=== PATIENT | female | born 1985 | race Caucasian/White ===

== ENCOUNTER 2019-12-01 19:35 | Emergency (ER) | payer MEDICARE, MEDICAID ==
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
--- NOTE | 2019-12-01 20:27 | XRAY Report ---
PROCEDURE: Hand 3 View RT INDICATIONS: Trauma TECHNIQUE: 3 views of the hand(s) acquired. COMPARISON: None FINDINGS: Bones: No fractures or dislocations. No suspicious bony lesions. Soft tissues: No suspicious soft tissue calcifications. IMPRESSION: No fracture or dislocation. Reviewed by: Megha Escoto MD on 12/01/2019 8:26 PM PDT Approved by: Megha Escoto MD on 12/01/2019 8:26 PM PDT Station ID: [id number]
--- NOTE | 2019-12-01 20:28 | XRAY Report ---
PROCEDURE: Wrist 4 View RT INDICATIONS: Trauma TECHNIQUE: 4 views of the wrist were acquired. COMPARISON: None. FINDINGS: Bones: No fractures or dislocations. No suspicious bony lesions. Scaphoid view: Scaphoid is intact. Soft tissues: No suspicious soft tissue calcifications. IMPRESSION: No fracture or dislocation. Reviewed by: Megha Escoto MD on 12/01/2019 8:27 PM PDT Approved by: Megha Escoto MD on 12/01/2019 8:27 PM PDT Station ID: [id number]
[2019-12-01 21:23] VITALS: BP 131/68
== END 2019-12-01 21:26 | disposition home or self-care (01) ==
LOC: ED 19:35
DX: M25.531 Pain in right wrist (principal); M79.641 Pain in right hand; W55.09XA Other contact with cat, initial encounter; W18.39XA Other fall on same level, initial encounter; Y93.89 Activity, other specified; Y92.009 Unspecified place in unspecified non-institutional (private) residence as the place of occurrence of the external cause
CPT/HCPCS: 99281; 99283

== ENCOUNTER 2020-03-08 07:23 | Emergency (ER) | payer MEDICARE, MEDICAID ==
[2020-03-08] MEDS ORDERED: SODIUM CHLORIDE 0.9% 1,000 ML IV STA (08:01)
[2020-03-08] MEDS ORDERED: HYDROmorphone 1 MG/ML CARPUJECT IVP STA (08:33)
[2020-03-08] MEDS ORDERED: PROMETHAZINE INJ 12.5 MG in SODIUM CHLORIDE 0.9% 50 ML IV STA (08:33)
--- NOTE | 2020-03-08 09:51 | ED Physician Documentation ---
PD HPI HEADACHE - Stated complaint Stated Complaint: HEAD PX - Chief complaint Chief Complaint: Neuro - History obtained from History obtained from: Patient - Additional information Additional information: Pt comes to the ED c/o migraine headache. Pt has a long-standing history of these, and states this is exactly the same. She states she was seen in clinic yesterday by a neurologist, after being referred by her PCP to possibly have an injection at the base of her neck (pt is not sure with what medication). However, she states she was told she was not a candidate for that treatment, and given a dose of rizatriptan, instead. She states this does not seem to have helped. She states that nothing really seems to help when she has a bad headache, even what is done for her in the ED. However, she states she comes in anyway, because she feels so bad. Pt c/o pain in her frontal area that goes up over the top of her head. She states the muscles in the sides of her neck are stiff and sore. No pain in her spine. She has not taken anything else at home for the headache. Review of Systems Ten Systems: 10 systems reviewed and negative Constitutional: reports: Reviewed and negative Eyes: reports: Reviewed and negative Ears: reports: Reviewed and negative Nose: reports: Reviewed and negative Throat: reports: Reviewed and negative Cardiac: reports: Reviewed and negative Respiratory: reports: Reviewed and negative GI: reports: Nausea. denies: Vomiting : reports: Reviewed and negative Skin: reports: Reviewed and negative Musculoskeletal: reports: Reviewed and negative Neurologic: reports: Headache. denies: Head injury Psychiatric: reports: Reviewed and negative Endocrine: reports: Reviewed and negative Immunocompromised: reports: Reviewed and negative PD PAST MEDICAL HISTORY - Past Medical History Cardiovascular: Murmur Neuro: Migraines : Other Psych: None Musculoskeletal: None Other Past Medical History: liver transplant at age 4, left kidney cyst, partial hysterectomy. ovarian cyst. - Past Surgical History General: Liver surgery /SHIRT [employer]: Hysterectomy - Allergies Allergies/Adverse Reactions: Allergies Allergy/AdvReac Type Severity Reaction Status Date / Time acetaminophen Allergy Rash Verified 03/08/20 08:31 amoxicillin Allergy Nausea Verified 03/08/20 08:31 NSAIDS (Non-Steroidal Allergy Unknown Verified 03/08/20 08:31 Anti-Inflamma tolmetin Allergy Unknown Verified 03/08/20 08:31 diphenhydramine AdvReac Unknown Verified 03/08/20 08:31 [From Benadryl] - Social History Does the pt smoke?: No Smoking Status: Never smoker Does the pt drink ETOH?: No Does the pt have substance abuse?: No PD ED PE NORMAL - Vitals Vital signs reviewed: Yes - General General: Alert and oriented X 3, No acute distress, Other (Pt appears moderately uncomfortable, sitting in a darkened room.) - HEENT HEENT: Atraumatic, PERRL, EOMI, Moist mucous membranes - Neck Neck: Supple, no meningeal sign, No bony TTP, Other (Tender over bilateral SCM and trapezius distribution) - Cardiac Cardiac: RRR, No murmur, Strong equal pulses - Respiratory Respiratory: No respiratory distress, Clear bilaterally - Abdomen Abdomen: Soft, Non tender, Non distended - Derm Derm: Normal color, Warm and dry, No rash - Extremities Extremities: No deformity, No edema, No calf tenderness / cord - Neuro Neuro: Alert and oriented X 3, clinical rn 2-12 intact, Normal speech, Other (grossly intact) - Psych Psych: Normal mood, Normal affect Results - Vitals Vitals: Vital Signs - 24 hr 03/08/20 03/08/20 09:07 10:41 Heart Rate 84 57 L Respiratory 18 18 Rate Blood Pressure 134/56 H 174/58 H O2 Saturation 99 100 Oxygen O2 Source Room air PD MEDICAL DECISION MAKING - ED course Complexity details: considered differential, d/w patient ED course: Pt was treated with Dilaudid, Toradol, and Phenergan, with some relief of sx. She reported that she was ready to go home. We have discussed the usual indications for return. Departure - Departure Disposition: 01 Home, Self Care Clinical Impression: Migraine Qualifiers: Migraine type: unspecified Status migrainosus presence: without status migrainosus Intractability: not intractable Qualified Code(s): G43.909 - Migraine, unspecified, not intractable, without status migrainosus Condition: Stable Instructions: ED Headache Migraine Discharge Date/Time: 03/08/20 10:39
[2020-03-08 10:41] VITALS: BP 174/58
== END 2020-03-08 10:39 | disposition home or self-care (01) ==
LOC: ED 07:23
DX: G43.909 Migraine, unspecified, not intractable, without status migrainosus (principal); Z94.4 Liver transplant status
CPT/HCPCS: 96365; 96375; 99283; 99284; J1170; J7040